=== PATIENT | male | born 1965 | race Caucasian/White ===

== ENCOUNTER 2019-07-10 20:50 | Emergency (ER) | payer MEDICARE, MEDICAID ==
[~2019-07-10] VITALS: Ht 172 cm; Wt 114.0 kg
[~2019-07-10 20:50] MED LIST: DOXY100C2 PO; HYDR-3720 PO
[2019-07-10 21:26] LABS: BILIRUBIN,URINE NEGATIVE (NEGATIVE); CLARITY,URINE VERY CLOUDY; COLOR,URINE YELLOW; GLUCOSE, URINE (UA) NEGATIVE (NEGATIVE); KETONES,URINE NEGATIVE (NEGATIVE); LEUKOCYTE ESTERASE ,URINE 3+ (NEGATIVE); NITRITE,URINE POSITIVE (NEGATIVE); PH,URINE 6.5 (5-9); PROTEIN,URINE 2+ (NEGATIVE); UROBILINOGEN,URINE NORMAL (NORMAL)
--- NOTE | 2019-07-10 21:26 | ED Headache ---
General Chief Complaint: Head/Cervical Problems Stated Complaint: HEADACHE,FEVER Nursing Triage Note: PT AMBULATE TO ROOM 07 WITH C/O HEADACHE AND FEVER SINCE TODAY. PT STATES FEVER OF 101.7 AT HOME. Nursing Sepsis Screen: No Definite Risk Source: patient Exam Limitations: no limitations History of Present Illness Date Seen by Provider: Jul 10, 2019 Time Seen by Provider: 21:24 Initial Comments temporal headache all day today. Denies nasal congestion or rhinorrhea, denies cough runny nose or sore throat. Noticed a fever this evening up to 101.2. Denies any neck pain. Denies any abdominal pain. 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 Timing/Duration: other (12 hours) Severity/Quality: moderate Location: frontal Prior Headaches/Recent Trauma: no recent headache/trauma Associated Symptoms: denies symptoms Allergies and Home Medications Allergies Coded Allergies: butorphanol (Unverified Allergy, Mild, 03/03/09) Home Medications Doxycycline Hyclate 100 Mg Capsule, 1 EACH PO BID Prescribed by: NAMRATA KABA on 03/03/091815 Hydrocodone Bit/Acetaminophen 1 Ea Tab, 1 EA PO Q 4 - 6 HRS PRN Prescribed by: NAMRATA KABA on 03/03/091815 Patient Home Medication List Home Medication List Reviewed: Yes Review of Systems Review of Systems Constitutional: see HPI, fever Eyes: No Symptoms Reported Ears, Nose, Mouth, Throat: no symptoms reported Respiratory: no symptoms reported Cardiovascular: no symptoms reported Genitourinary: no symptoms reported Musculoskeletal: no symptoms reported Skin: no symptoms reported Psychiatric/Neurological: Headache Past Rzuxzxr-Globsi-Jwxieq Hx Patient Social History Alcohol Use: Denies Use Recreational Drug Use: No Smoking Status: Current Everyday Smoker Type Used: Cigarettes 2nd Hand Smoke Exposure: Yes Recent Foreign Travel: No Contact w/Someone Who Travel: No Recent Infectious Disease Expo: No Recent Hopitalizations: No Physical Abuse: No Sexual Abuse: No Mistreated: No Fear: No Seasonal Allergies Seasonal Allergies: Yes Past Medical History Surgeries: Yes (HALF BLADDER REMOVED, GROWTH REMOVED FROM BLADDER, 1993 BLADDER DISCONNECTE) Gallbladder Respiratory: Yes Asthma, COPD Currently Using CPAP: No Currently Using BIPAP: No Cardiac: No Neurological: No Genitourinary: Yes (2015 BLADDER REMOVED) Kidney Stones Gastrointestinal: Yes Gall Bladder Disease Musculoskeletal: Yes Arthritis Endocrine: No HEENT: No Cancer: No Psychosocial: No Integumentary: No Blood Disorders: No Physical Exam Vital Signs Vital Signs - First Documented 07/10/19 21:05 Temp 37.0 Pulse 89 Resp 18 B/P (MAP) 137/82 (100) Pulse Ox 94 O2 Delivery Room Air Capillary Refill : Less Than 3 Seconds Height, Weight, BMI Height: '" Weight: lbs. oz. kg; 38.00 BMI Method: General Appearance: WD/WN, no apparent distress HEENT: PERRL/EOMI, normal ENT inspection, TMs normal Neck: non-tender, full range of motion Cardiovascular: regular rate, rhythm, no murmur Respiratory: normal breath sounds, no respiratory distress, no accessory muscle use Gastrointestinal: normal bowel sounds, non tender, soft Extremities: normal range of motion, non-tender Psychiatric: alert, oriented x 3 Crainal Nerves: normal hearing, normal speech, PERRL Skin: normal color, warm/dry Progress/Results/Core Measures Results/Orders Lab Results Laboratory Tests Test 07/10/19 21:19 07/10/19 21:26 Range/Units Urine Color YELLOW Urine Clarity VERY CLOUDY H Urine pH 6.5 5-9 Urine Specific [place] 1.015 L 1.016-1.022 Urine Protein 2+ H NEGATIVE Urine Glucose (UA) NEGATIVE NEGATIVE Urine Ketones NEGATIVE NEGATIVE Urine Nitrite POSITIVE H NEGATIVE Urine Bilirubin NEGATIVE NEGATIVE Urine Urobilinogen NORMAL NORMAL MG/DL Urine Leukocyte Esterase 3+ H NEGATIVE Urine RBC (Auto) 3+ H NEGATIVE Urine RBC RARE /HPF Urine WBC 2-5 /HPF Urine Squamous Epithelial Cells RARE /HPF Urine Crystals NONE /LPF Urine Bacteria MODERATE H /HPF Urine Casts NONE /LPF Urine Mucus SMALL H /LPF Urine Culture Indicated YES White Blood Count 7.8 4.3-11.0 10^3/uL Red Blood Count 4.99 4.35-5.85 10^6/uL Hemoglobin 14.3 13.3-17.7 G/DL Hematocrit 42 40-54 % Mean Corpuscular Volume 84 80-99 FL Mean Corpuscular Hemoglobin 29 25-34 PG Mean Corpuscular Hemoglobin Concent 34 32-36 G/DL Red Cell Distribution Width 14.6 H 10.0-14.5 % Platelet Count 160 130-400 10^3/uL Mean Platelet Volume 10.9 H 7.4-10.4 FL Neutrophils (%) (Auto) 57 42-75 % Lymphocytes (%) (Auto) 32 12-44 % Monocytes (%) (Auto) 10 0-12 % Eosinophils (%) (Auto) 1 0-10 % Basophils (%) (Auto) 0 0-10 % Neutrophils # (Auto) 4.4 1.8-7.8 X 10^3 Lymphocytes # (Auto) 2.5 1.0-4.0 X 10^3 Monocytes # (Auto) 0.8 0.0-1.0 X 10^3 Eosinophils # (Auto) 0.1 0.0-0.3 10^3/uL Basophils # (Auto) 0.0 0.0-0.1 10^3/uL Sodium Level 137 135-145 MMOL/L Potassium Level 3.9 3.6-5.0 MMOL/L Chloride Level 106 98-107 MMOL/L Carbon Dioxide Level 21 21-32 MMOL/L Anion Gap 10 5-14 MMOL/L Blood Urea Nitrogen 12 7-18 MG/DL Creatinine 1.24 0.60-1.30 MG/DL Estimat Glomerular Filtration Rate > 60 BUN/Creatinine Ratio 10 Glucose Level 105 70-105 MG/DL Calcium Level 8.5 8.5-10.1 MG/DL Micro Results Microbiology 07/10/19 Influenza Types A,B Antigen ([place]) - Final, Complete My Orders Orders - WILLIAMS REYES APRN Ua Culture If Indicated (07/10/19 21:10) Ct Head Wo (07/10/19 21:10) Cbc With Automated Diff (07/10/19 21:10) Basic Metabolic Panel (07/10/19 21:10) Urine Culture (07/10/19 21:19) Cefdinir Capsule (Omnicef Capsule) (07/10/19 22:00) Vital Signs/I&O 07/10/19 21:05 Temp 37.0 Pulse 89 Resp 18 B/P (MAP) 137/82 (100) Pulse Ox 94 O2 Delivery Room Air Blood Pressure Mean: 100 Departure Impression Primary Impression: Urinary tract infection Qualified Codes: N30.00 - Acute cystitis without hematuria Disposition: 01 HOME, SELF-CARE Condition: Stable Departure-Patient Inst. Decision time for Depature: 21:53 Referrals: NO,LOCAL PHYSICIAN (PCP/Family) Primary Care Physician Patient Instructions: Urinary Tract Infection, Adult (DC) Add. Discharge Instructions: antibiotics as directed. Return to Er for any concerns. follow up with your doctor next week All discharge instructions reviewed with patient and/or family. Voiced understanding. Scripts Cefdinir (Cefdinir) 300 Mg Capsule 300 MG PO BID, #14 CAP 0 Refills Prov: WILLIAMS REYES APRN 07/10/19 WILLIAMS REYES APRN Jul 10, 2019 21:26
[2019-07-10 21:34] LABS: BASOPHILS % (AUTO) 0 % (0-10); EOSINOPHILS # (AUTO) 0.1 10^3/uL (0.0-0.3); EOSINOPHILS % (AUTO) 1 % (0-10); HEMATOCRIT 42 % (40-54); HEMOGLOBIN 14.3 G/DL (13.3-17.7); LYMPHOCYTES # (AUTO) 2.5 X 10^3 (1.0-4.0); LYMPHOCYTES % (AUTO) 32 % (12-44); MEAN CORPUSCULAR HEMOGLOBIN 29 PG (25-34); MEAN CORPUSCULAR HGB CONC 34 G/DL (32-36); MEAN CORPUSCULAR VOLUME 84 FL (80-99); MEAN PLATELET VOLUME 10.9 FL (7.4-10.4); MONOCYTES # (AUTO) 0.8 X 10^3 (0.0-1.0); MONOCYTES % (AUTO) 10 % (0-12); NEUTROPHILS # (AUTO) 4.4 X 10^3 (1.8-7.8); NEUTROPHILS % (AUTO) 57 % (42-75); PLATELET COUNT 160 10^3/uL (130-400); RED CELL DISTRIBUTION WIDTH 14.6 % (10.0-14.5); WHITE BLOOD COUNT 7.8 10^3/uL (4.3-11.0)
[2019-07-10 21:45] LABS: BACTERIA,URINE MODERATE /HPF; RBC,URINE RARE /HPF; SQUAMOUS EPITHELIAL CELL,UR RARE /HPF
[2019-07-10 21:51] LABS: BUN/CREATININE RATIO 10; CALCIUM 8.5 MG/DL (8.5-10.1); CARBON DIOXIDE 21 MMOL/L (21-32); CHLORIDE 106 MMOL/L (98-107); CREATININE SERUM 1.24 MG/DL (0.60-1.30); GFR ESTIMATED > 60; GLUCOSE 105 MG/DL (70-105); POTASSIUM 3.9 MMOL/L (3.6-5.0); SODIUM 137 MMOL/L (135-145)
[2019-07-10] MEDS ORDERED: CEFD300C3 PO (21:55)
--- NOTE | 2019-07-10 21:58 | Diagnostic Imaging Report ---
PROCEDURE: CT head without contrast. TECHNIQUE: Multiple contiguous axial images were obtained through the brain without the use of intravenous contrast. Auto Exposure Controls were utilized during the CT exam to meet ALARA standards for radiation dose reduction. INDICATION: Headache COMPARISON STUDY: None FINDINGS: Noncontrast CT scanning of the head demonstrates no mass effect, midline shift, hemorrhage or extra-axial fluid collections. The kennedy-white matter differentiation is normal. The ventricles, cortical sulci and basilar cisterns appear normal. Mastoid air cells and paranasal sinuses are clear. IMPRESSION: Normal noncontrast CT scan pf the head. Dictated by: Dictated on workstation # [id number]
[2019-07-10] MEDS ORDERED: CEFDINIR 300 MG (OMNICEF) CAP PO ONE (22:00)
[2019-07-10 22:04] VITALS: BP 122/75
== END 2019-07-10 22:03 | disposition home or self-care (01) ==
LOC: EDUNIT# 20:50 → ER 20:51
DX: N39.0 Urinary tract infection, site not specified (principal); J44.9 Chronic obstructive pulmonary disease, unspecified; F17.210 Nicotine dependence, cigarettes, uncomplicated; Z87.442 Personal history of urinary calculi; Z88.5 Allergy status to narcotic agent
CPT/HCPCS: 36415; 70450; 80048; 81000; 85025; 87088; 87804

== ENCOUNTER 2021-04-13 13:35 | Emergency (ER) | payer MEDICARE, MEDICAID ==
[~2021-04-13] VITALS: Ht 172 cm; Wt 122.0 kg
[~2021-04-13 13:35] MED LIST changes: +CEFD300C3 PO
[2021-04-13 14:26] LABS: BASOPHILS # (AUTO) 0.1 10^3/uL (0.0-0.1); BASOPHILS % (AUTO) 1 % (0-10); EOSINOPHILS # (AUTO) 0.2 10^3/uL (0.0-0.3); EOSINOPHILS % (AUTO) 3 % (0-10); HEMATOCRIT 45 % (40-54); HEMOGLOBIN 14.7 g/dL (13.3-17.7); LYMPHOCYTES # (AUTO) 2.5 10^3/uL (1.0-4.0); LYMPHOCYTES % (AUTO) 29 % (12-44); MEAN CORPUSCULAR HEMOGLOBIN 29 pg (25-34); MEAN CORPUSCULAR HGB CONC 33 g/dL (32-36); MEAN CORPUSCULAR VOLUME 88 fL (80-99); MEAN PLATELET VOLUME 10.6 fL (9.0-12.2); MONOCYTES # (AUTO) 0.6 10^3/uL (0.0-1.0); MONOCYTES % (AUTO) 7 % (0-12); NEUTROPHILS # (AUTO) 5.2 10^3/uL (1.8-7.8); NEUTROPHILS % (AUTO) 60 % (42-75); PLATELET COUNT 201 10^3/uL (130-400); WHITE BLOOD COUNT 8.7 10^3/uL (4.3-11.0)
[2021-04-13 14:34] LABS: INR 0.9 (0.8-1.4); PROTHROMBIN TIME PATIENT 12.5 SEC (12.2-14.7)
[2021-04-13 14:37] LABS: POTASSIUM 4.2 MMOL/L (3.6-5.0)
[2021-04-13 14:38] LABS: CALCIUM 8.8 MG/DL (8.5-10.1)
[2021-04-13 14:39] LABS: TOTAL PROTEIN 6.9 GM/DL (6.4-8.2)
[2021-04-13 14:41] LABS: BILIRUBIN,TOTAL 0.3 MG/DL (0.1-1.0)
[2021-04-13 14:43] LABS: CREATININE SERUM 1.35 MG/DL (0.60-1.30)
[2021-04-13 15:10] LABS: BILIRUBIN,URINE NEGATIVE (NEGATIVE); CLARITY,URINE CLOUDY; COLOR,URINE YELLOW; GLUCOSE, URINE (UA) NEGATIVE (NEGATIVE); KETONES,URINE NEGATIVE (NEGATIVE); LEUKOCYTE ESTERASE ,URINE 3+ (NEGATIVE); NITRITE,URINE POSITIVE (NEGATIVE); PH,URINE 8.5 (5-9); PROTEIN,URINE TRACE (NEGATIVE)
[2021-04-13 15:28] LABS: AMORPHOUS SEDIMENT,UR LARGE AMOR PHOSPHATE /LPF; BACTERIA,URINE LARGE /HPF; TRIPLE PHOSPHATE CRYSTAL,UR MODERATE /LPF
--- NOTE | 2021-04-13 15:46 | ED Abdominal Pain ---
General Chief Complaint: Rect Problems Stated Complaint: BLEEDING IN RECTUM Nursing Triage Note: PT AMB TO ROOM 7 PT CO OF RECTAL BLEEDING ON TOILET PAPER WHEN WIPED TODAY. DENIES BLOOD IN TOILET. PT STATES THINKS HE MAY HAVE UTI STATES URINE HAS A SMELL Sepsis Screen: No Definite Risk Source of Information: Patient Exam Limitations: No Limitations History of Present Illness Date Seen by Provider: Apr 13, 2021 Time Seen by Provider: 15:00 Initial Comments Here with rectal bleeding that he noted when wiping after bowel movement with toilet paper. Noticed that he had a little bit of blood in his stool. Also complains of foul-smelling urine and has urostomy. Denies nausea or vomiting. Denies weakness. Does not have persistent bleeding or blood in stool. Timing/Duration: 24 Hours, Intermittent Severity/Quality: Other (No pain) Associated Symptoms: No Back Pain, No Fever/Chills, No Nausea/Vomiting, No Weakness Allergies and Home Medications Allergies Coded Allergies: butorphanol (Unverified Allergy, Mild, 03/03/09) Home Medications Cefdinir 300 Mg Capsule, 300 MG PO BID Prescribed by: WILLIAMS REYES on 07/10/192154 Doxycycline Hyclate 100 Mg Capsule, 1 EACH PO BID Prescribed by: NAMRATA KABA on 03/03/091815 Hydrocodone Bit/Acetaminophen 1 Ea Tab, 1 EA PO Q 4 - 6 HRS PRN Prescribed by: NAMRATA KABA on 03/03/091815 Patient Home Medication List Home Medication List Reviewed: Yes Review of Systems Review of Systems Constitutional: see HPI EENTM: No Symptoms Reported Respiratory: No Symptoms Reported Gastrointestinal: Denies Abdominal Pain, Denies Nausea; Rectal Bleeding; Denies Vomiting Genitourinary: See HPI, Flank Pain, Other (Foul-smelling urine) Musculoskeletal: back pain; No muscle pain Skin: no symptoms reported Past Vhhhgrc-Juhmlh-Harfsm Hx Past Med/Social Hx: Reviewed Nursing Past Med/Soc Hx Patient Social History Alcohol Use: Denies Use Smoking Status: Current Everyday Smoker Type Used: Cigarettes 2nd Hand Smoke Exposure: Yes Recent Infectious Disease Expo: No Recent Hopitalizations: No Seasonal Allergies Seasonal Allergies: Yes Past Medical History Surgeries: Yes (HALF BLADDER REMOVED, GROWTH REMOVED FROM BLADDER, 1993 BLADDER DISCONNECTE) Gallbladder Respiratory: Yes Asthma, COPD Currently Using CPAP: No Currently Using BIPAP: No Cardiac: No Neurological: No Genitourinary: Yes (2016 BLADDER REMOVED) Kidney Stones Gastrointestinal: Yes Gall Bladder Disease Musculoskeletal: Yes Arthritis Endocrine: No HEENT: No Cancer: No Psychosocial: No Integumentary: No Blood Disorders: No Family Medical History Reviewed Nursing Family Hx Physical Exam Vital Signs Vital Signs - First Documented 04/13/21 13:42 Temp 36.6 Pulse 96 Resp 18 B/P (MAP) 139/89 (106) Pulse Ox 97 Capillary Refill : Less Than 3 Seconds Height/Weight/BMI Height: '" Weight: lbs. oz. kg; 41.00 BMI Method: General Appearance: WD/WN, no apparent distress Neck: full range of motion, supple Respiratory: lungs clear, normal breath sounds Cardiovascular: regular rate, rhythm, no murmur Gastrointestinal: non tender, soft Rectal: hemorrhoids (Left lateral and perineal side with small amount of blood noted. No rectal mass noted on rectal exam. No significant stool in the rectal vault.) Neurologic/Psychiatric: alert, oriented x 3 Skin: normal color, warm/dry Progress/Results/Core Measures Results/Orders Lab Results Laboratory Tests Test 04/13/21 14:15 04/13/21 14:30 Range/Units White Blood Count 8.7 4.3-11.0 10^3/uL Red Blood Count 5.13 4.30-5.52 10^6/uL Hemoglobin 14.7 13.3-17.7 g/dL Hematocrit 45 40-54 % Mean Corpuscular Volume 88 80-99 fL Mean Corpuscular Hemoglobin 29 25-34 pg Mean Corpuscular Hemoglobin Concent 33 32-36 g/dL Red Cell Distribution Width 14.3 10.0-14.5 % Platelet Count 201 130-400 10^3/uL Mean Platelet Volume 10.6 9.0-12.2 fL Immature Granulocyte % (Auto) 1 % Neutrophils (%) (Auto) 60 42-75 % Lymphocytes (%) (Auto) 29 12-44 % Monocytes (%) (Auto) 7 0-12 % Eosinophils (%) (Auto) 3 0-10 % Basophils (%) (Auto) 1 0-10 % Neutrophils # (Auto) 5.2 1.8-7.8 10^3/uL Lymphocytes # (Auto) 2.5 1.0-4.0 10^3/uL Monocytes # (Auto) 0.6 0.0-1.0 10^3/uL Eosinophils # (Auto) 0.2 0.0-0.3 10^3/uL Basophils # (Auto) 0.1 0.0-0.1 10^3/uL Immature Granulocyte # (Auto) 0.0 0.0-0.1 10^3/uL Prothrombin Time 12.5 12.2-14.7 SEC INR Comment 0.9 0.8-1.4 Sodium Level 141 135-145 MMOL/L Potassium Level 4.2 3.6-5.0 MMOL/L Chloride Level 108 H 98-107 MMOL/L Carbon Dioxide Level 23 21-32 MMOL/L Anion Gap 10 5-14 MMOL/L Blood Urea Nitrogen 13 7-18 MG/DL Creatinine 1.35 H 0.60-1.30 MG/DL Estimat Glomerular Filtration Rate 55 BUN/Creatinine Ratio 10 Glucose Level 111 H 70-105 MG/DL Calcium Level 8.8 8.5-10.1 MG/DL Corrected Calcium 8.8 8.5-10.1 MG/DL Total Bilirubin 0.3 0.1-1.0 MG/DL Aspartate Amino Transf (AST/SGOT) 15 5-34 U/L Alanine Aminotransferase (ALT/SGPT) 32 0-55 U/L Alkaline Phosphatase 60 40-136 U/L Total Protein 6.9 6.4-8.2 GM/DL Albumin 4.0 3.2-4.5 GM/DL Urine Color YELLOW Urine Clarity CLOUDY Urine pH 8.5 5-9 Urine Specific [place] 1.015 L 1.016-1.022 Urine Protein TRACE H NEGATIVE Urine Glucose (UA) NEGATIVE NEGATIVE Urine Ketones NEGATIVE NEGATIVE Urine Nitrite POSITIVE H NEGATIVE Urine Bilirubin NEGATIVE NEGATIVE Urine Urobilinogen 0.2 < = 1.0 MG/DL Urine Leukocyte Esterase 3+ H NEGATIVE Urine RBC (Auto) TRACE-I NEGATIVE Urine RBC NONE /HPF Urine WBC 5-10 H /HPF Urine Crystals PRESENT H /LPF Urine Triple Phosphate Crystals MODERATE H /LPF Urine Amorphous Sediment LARGE KRANTHI PHOSPHATE H /LPF Urine Bacteria LARGE H /HPF Urine Casts NONE /LPF Urine Mucus NEGATIVE /LPF Urine Culture Indicated YES My Orders Orders - GRAY CLARK MD Ua Culture If Indicated (04/13/21 15:03) Urine Culture (04/13/21 14:30) Vital Signs/I&O 04/13/21 13:42 Temp 36.6 Pulse 96 Resp 18 B/P (MAP) 139/89 (106) Pulse Ox 97 Blood Pressure Mean: 106 Progress Progress Note : Progress Note Seen and evaluated. Rectal exam performed. Hemorrhoids noted. Heme positive We did get urine sample and this was positive with culture pending. Previous culture shows resistance to nitrofurantoin so will use cefdinir which has been effective in the past. Discharged home with return precautions. Patient verbalized understanding of instructions and agreement with plan. Departure Impression Primary Impression: Hemorrhoids Qualified Codes: K64.9 - Unspecified hemorrhoids Additional Impression: Urinary tract infection Qualified Codes: N30.00 - Acute cystitis without hematuria Disposition: HOME, SELF-CARE Condition: Stable Departure-Patient Inst. Decision time for Depature: 15:53 Referrals: NO,LOCAL PHYSICIAN (PCP/Family) Primary Care Physician Patient Instructions: Hemorrhoids (DC), Urinary Tract Infection, Adult (DC) Add. Discharge Instructions: All discharge instructions reviewed with patient and/or family. Voiced understanding. Take medications as directed. You may use [id number] Preparation H or preparation HC per package directions. Follow-up with your doctor in a few days for recheck and further evaluation. Discussed with your doctor about referral for colonoscopy as this needs to be done due to rectal bleeding. Your bleeding is likely related to hemorrhoids. You do have a urinary tract infection and this will be treated. Cultures are pending and if those show that the antibiotic that you have was not effective, you will be called. Return for worse pain, fever, vomiting, weakness, breathing problems or other concerns as needed. Drink plenty of fluids. Scripts Cefdinir (Cefdinir) 300 Mg Capsule 300 MG PO BID, #14 CAP 0 Refills Prov: GRAY CLARK MD 04/13/21 Copy Copies To 1: NANCY RÍOS MD, TIMOTHY D MD Apr 13, 2021 15:46
[2021-04-13] MEDS ORDERED: CEFD300C3 PO (15:55)
[2021-04-13 16:11] VITALS: BP 139/89
== END 2021-04-13 16:11 | disposition home or self-care (01) ==
LOC: EDUNIT# 13:35 → ER 13:37
DX: K64.9 Unspecified hemorrhoids (principal); N39.0 Urinary tract infection, site not specified; J44.9 Chronic obstructive pulmonary disease, unspecified; F17.210 Nicotine dependence, cigarettes, uncomplicated
CPT/HCPCS: 36415; 80053; 81000; 85025; 85610; 87088; 87186